=== PATIENT | female | born 2000 | race Caucasian/White ===

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

== ENCOUNTER 2020-01-12 16:35 | Emergency (ER) | payer OTHER ==
[~2020-01-12] VITALS: Ht 167.6 cm; Wt 54.4 kg
--- NOTE | 2020-01-12 16:39 | NUR ---
CAME FOR BACK PAIN AFTER LIFTING BOX, TO ER BED 11, BP CUFF AND POX, CHANGED TO HOSP GOWN, WARM BLANKET PROVIDED, PATIENT AAOx , BREATHING EVEN AND UNLABORED, CASSANDRA NOTED, AWAITING MD ADAMS. Addendum: 01/12/20 at 1843 by FABIOLA CAME FOR BACK PAIN AFTER LIFTING BOX, TO ER BED 11, BP CUFF AND POX, CHANGED TO HOSP GOWN, WARM BLANKET PROVIDED, PATIENT AAOx 4, BREATHING EVEN AND UNLABORED, CASSANDRA NOTED, AWAITING MD ADAMS.
--- NOTE | 2020-01-12 16:48 | NUR ---
LANRE QUEEN AT BEDSIDE
[2020-01-12] MEDS ORDERED: DEXAMETHASONE SOD PHOSPHATE 4 MG/ML VIAL ONE (17:00)
[2020-01-12] MEDS ORDERED: DEXAMETHASONE SOD PHOSPHATE 4 MG/ML VIAL IM ONE (17:00)
[2020-01-12] MEDS ORDERED: CYCLOBENZAPRINE 10 MG TABLET PO ONE (17:00)
[2020-01-12] MEDS ORDERED: KETOROLAC TROMETHAMINE INJ 60 MG/2 ML VIAL IM ONE ×2 (17:00)
[2020-01-12] MEDS ORDERED: CYCLOBENZAPRINE 10 MG TABLET ONE (17:00)
[2020-01-12 18:44] VITALS: BP 112/68
--- NOTE | 2020-01-12 18:44 | NUR ---
Patient discharged to home in stable condition. Written and verbal after care instructions given. Patient verbalizes understanding of instruction.
== END 2020-01-12 18:45 | disposition home or self-care (01) ==
LOC: ER 16:36
DX: S39.012A Strain of muscle, fascia and tendon of lower back, initial encounter (principal); R42 Dizziness and giddiness; Z98.890 Other specified postprocedural states; Z60.2 Problems related to living alone; Z79.899 Other long term (current) drug therapy; X58.XXXA Exposure to other specified factors, initial encounter; Y93.89 Activity, other specified; Y92.89 Other specified places as the place of occurrence of the external cause; Y99.8 Other external cause status
CPT/HCPCS: 96372 ×2; 99284; J1100; J1885

== ENCOUNTER 2024-04-09 22:58 | Emergency (ER) | payer OTHER ==
[~2024-04-09] VITALS: Ht 162.6 cm; Wt 54.4 kg
[2024-04-09] MEDS ORDERED: ACETAMINOPHEN ES 500 MG TABLET ONE (23:52)
[2024-04-09] MEDS ORDERED: IBUPROFEN 600 MG TABLET ONE (23:53)
[2024-04-09] MEDS: IBUPROFEN 600 MG TABLET PO ONE (23:55)
[2024-04-09] MEDS: ACETAMINOPHEN ES 500 MG TABLET PO ONE (23:55)
[2024-04-10] MEDS ORDERED: IBUP-1490 PO (00:47)
[2024-04-10 01:02] VITALS: BP 117/76; TEMP 210.4; O2SAT 98
== END 2024-04-10 01:04 | disposition home or self-care (01) ==
LOC: ER 23:02
DX: J10.1 Influenza due to other identified influenza virus with other respiratory manifestations (principal); R05.9 Cough, unspecified; R11.0 Nausea; R50.9 Fever, unspecified; Z20.822 Contact with and (suspected) exposure to COVID-19
CPT/HCPCS: 71045-TC